=== PATIENT | male | born 1970 | race Caucasian/White ===

== ENCOUNTER 2017-03-10 23:44 | Emergency (ER) | payer SELFPAY ==
[~2017-03-10] VITALS: Ht 188 cm; Wt 101.0 kg
[2017-03-10 23:49] VITALS: Ht 188 cm; Wt 101.0 kg
[2017-03-11] MEDS ORDERED: KETOROLAC 60 MG INJ IM STA (02:48)
[2017-03-11] MEDS ORDERED: PROCHLORPERAZINE 10 MG TAB PO ONE (03:00)
--- NOTE | 2017-03-11 03:11 | RADRPT ---
PROCEDURE: CT brain without contrast. CLINICAL INDICATION: Headache. TECHNIQUE: CT scan of the brain was performed on a multi-detector high-resolution CT scanner. Co ntiguous axial images were obtained from the skull base to the vertex without intravenous contrast. Coronal and sagittal reformatted images were also obtained. Images were reviewed on the PACS works tation. One or more of the following dose reduction techniques were used: - Automated exposure control. - Adjustment of the mA and/or kV according to patient size. - Use of iterative reconstruction technique. Exam CTD/vol = 44.46 mGy. Total exam DLP = 720.23 mGy-cm. COMPARISON: None. FINDINGS: There are mild deformities along bilateral anterior frontal skull with a defect within the left ante rior frontal skull. There is hyperdense soft tissue filling the left frontal sinus with mild intrac ranial extension into the left anterior middle cranial fossa measuring approximately 1.4 cm AP by 3. 2 cm transverse by 2.4 cm sagittal. There is opacification of the right frontal sinus and bilateral anterior and middle ethmoid air cells. The ventricles and cortical sulci are within normal limits f or patient's age. There is an area of encephalomalacia within the left inferior frontal lobe. There is no midline shift. There is no intracranial hemorrhage or abnormal extra-axial collection. Bilater al mastoid air cells are clear. IMPRESSION: Mild deformities along bilateral anterior frontal skull consistent with old injury. There is opacifi cation of bilateral frontal sinuses with hyperdense material within the left frontal sinus which cou ld suggest a hemorrhagic/proteinaceous material. There is intracranial extension into the left anter ior middle cranial fossa. Further evaluation can be made by MRI if clinically warranted. Area of encephalomalacia within the left inferior frontal lobe compatible with old trauma. A call report was made to Dr. Aviles at 03:08 a.m. .José Luis Peace MD, Date Time Electronically viewed and signed by .José Luis Peace MD, on 03/11/2017 03:11 .T/
[2017-03-11] MEDS ORDERED: FLUT9.9S NASAL (03:31)
[2017-03-11] MEDS ORDERED: AMOX1TAB9 PO (03:31)
[2017-03-11] MEDS ORDERED: IBUP-1542 PO (03:31)
[2017-03-11 03:46] VITALS: BP 134/92; PULSE 73; RESP 18
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
== END 2017-03-11 04:07 | disposition home or self-care (01) ==
LOC: FTE 23:44
DX: J32.1 Chronic frontal sinusitis (principal)
CPT/HCPCS: 70450; 96372; 99285; J1885